=== PATIENT | female | born 1990 | race American Indian/Alaskan Native ===

== ENCOUNTER 2017-12-04 06:59 | Emergency (ER) | payer MEDICAID ==
[2017-12-04] MEDS ORDERED: TYLENOL ONE (07:18)
[2017-12-04] MEDS ORDERED: TYLENOL PO ONE (07:43)
--- NOTE | 2017-12-04 08:13 | Emergency Department Report ---
ED Abdominal Pain HPI - General Chief Complaint: Abdominal Pain Stated Complaint: 13 WEEKS , SEVERE PAIN Time Seen by Provider: 12/04/17 08:02 Source: patient, family Mode of arrival: Ambulatory Limitations: No Limitations - History of Present Illness Initial Comments: 27-year-old female presents with generalized lower abdominal cramping. Pain feels like contractions. She denies vaginal bleeding. She has clear vaginal discharge. Gradual onset of symptoms several hours prior to arrival. Last menstrual period 08/31/2017. Estimated due date given to her by clinic at [place] 05/01/2018. moderately severe pain. Gradual onset pain, does not change with movement or touch. No radiation. Pain is intermittent. According to dates she is currently 13 weeks and 4 days - Related Data Allergies Allergy/AdvReac Type Severity Reaction Status Date / Time No Known Allergies Allergy Verified 12/04/17 07:39 ED Review of Systems ROS: Stated complaint: 13 WEEKS , SEVERE PAIN Other details as noted in HPI ED Past Medical Hx - Past Medical History Previous Medical History?: No - Surgical History Past Surgical History?: No - Social History Smoking Status: Never Smoker Substance Use Type: None ED Physical Exam - General Limitations: No Limitations General appearance: alert, in no apparent distress - Head Head exam: Present: atraumatic, normocephalic - Eye Eye exam: Present: normal appearance - ENT ENT exam: Present: normal exam, normal orophraynx, mucous membranes dry, mucous membranes moist - Neck Neck exam: Present: normal inspection. Absent: meningismus - Respiratory Respiratory exam: Present: normal lung sounds bilaterally. Absent: respiratory distress, wheezes, rales, rhonchi - Cardiovascular Cardiovascular Exam: Present: regular rate, normal rhythm, normal heart sounds. Absent: systolic murmur, diastolic murmur, rubs, gallop - GI/Abdominal GI/Abdominal exam: Present: soft, normal bowel sounds. Absent: distended, tenderness, guarding, rebound (gravid abdomen) - Extremities Exam Extremities exam: Present: normal inspection - Back Exam Back exam: Present: normal inspection - Neurological Exam Neurological exam: Present: alert, oriented X3 - Psychiatric Psychiatric exam: Present: normal affect, normal mood - Skin Skin exam: Present: warm, dry, intact, normal color. Absent: rash ED Course Vital Signs 12/04/17 12/04/17 07:08 08:20 Temperature 98.5 F 98.0 F Pulse Rate 83 81 Respiratory 14 Rate Blood Pressure 138/59 Blood Pressure 126/69 [Left] O2 Sat by Pulse 99 99 Oximetry ED Medical Decision Making - Lab Data Result diagrams: 12/04/17 07:35 Laboratory Results - last 24 hr 12/04/17 12/04/17 12/04/17 07:13 07:35 07:35 WBC 6.5 RBC 4.04 Hgb 12.4 Hct 36.4 MCV 90 MCH 31 MCHC 34 RDW 13.4 Plt Count 199 HCG, Quant 18564 H Urine Color Yellow Urine Turbidity Clear Urine pH 6.0 Ur Specific [place] 1.019 Urine Protein <15 mg/dl Urine Glucose (UA) Neg Urine Ketones Neg Urine Blood Neg Urine Nitrite Neg Urine Bilirubin Neg Urine Urobilinogen < 2.0 Ur Leukocyte Esterase Tr Urine WBC (Auto) 2.0 Urine RBC (Auto) 3.0 U Epithel Cells (Auto) 16.0 H Blood Type 12/04/17 07:35 WBC RBC Hgb Hct MCV MCH MCHC RDW Plt Count HCG, Quant Urine Color Urine Turbidity Urine pH Ur Specific [place] Urine Protein Urine Glucose (UA) Urine Ketones Urine Blood Urine Nitrite Urine Bilirubin Urine Urobilinogen Ur Leukocyte Esterase Urine WBC (Auto) Urine RBC (Auto) U Epithel Cells (Auto) Blood Type O POSITIVE Vital Signs - 24 hr 12/04/17 12/04/17 07:08 08:20 Temperature 98.5 F 98.0 F Pulse Rate 83 81 Respiratory 14 Rate Blood Pressure 138/59 Blood Pressure 126/69 [Left] O2 Sat by Pulse 99 99 Oximetry - Medical Decision Making Ms. Desai presents with abdominal cramping. She felt much better after knowing that the baby appears well on ultrasound and has a good heartbeat. She was given reassurance. No indication of threatened , appendicitis or ectopic. Abdominal pain seems related to normal . Dc'd home Critical care attestation.: If time is entered above; I have spent that time in minutes in the direct care of this critically ill patient, excluding procedure time. ED Disposition Clinical Impression: , Abdominal pain affecting Disposition: DC-01 TO HOME OR SELFCARE Is pt being admited?: No Does the pt Need Aspirin: No Condition: Stable Instructions: Abdominal Pain in (ED) Referrals: PRIMARY CAREMD [Primary Care Provider] - 3-5 Days DESHAWN RAMIREZ MD [Staff Physician] - as needed Time of Disposition: 10:05
[2017-12-04 08:15] LABS: Hematocrit 36.4 % (30.3-42.9); Hemoglobin 12.4 gm/dl (10.1-14.3); Mean Corpuscular HGB Conc 34 % (30-34); Mean Corpuscular Hemoglobin 31 pg (28-32); Mean Corpuscular Volume 90 fl (79-97); Platelet Count 199 K/mm3 (140-440); Red Blood Count 4.04 M/mm3 (3.65-5.03); Red Cell Distribution Width 13.4 % (13.2-15.2)
[2017-12-04 08:24] VITALS: BP 126/69
[2017-12-04 08:28] LABS: Bilirubin,Urine NEG (Negative); Blood,Urine NEG (Negative); Color,Urine Yellow (Yellow); Protein,Urine <15 mg/dL mg/dL (Negative); Urobilinogen,Urine < 2.0 mg/dL (<2.0)
[2017-12-04] MEDS ORDERED: NORCO 5/325 PO ONE (08:30)
--- NOTE | 2017-12-04 09:37 | Ultrasound Report ---
OB ULTRASOUND History vaginal cramping during . Technique: Transabdominal ultrasound with Doppler interrogation. Gestation: Single Position: Transverse, head to maternal left Amniotic Fluid: Within normal limits Placenta: Posterior Placental Grade: 0 Heart Rate: 143 BPM Cervical length: 3.6 cm (Normal > 3 cm) x It is too early for a anatomical survey BPD: 2.5 cm = 14 w 2 d HC: 10.2 cm = 14 w 5 d AC: 7.8 cm = 14 w 2 d FL: 1.3 cm = 13 w 6 d HC/AC Ratio: 1.29 Cephalic Index: 73.2 LMP: 08/31/17 Clinical age = 13 w 4 d EDC: 06/07/18 US Gest. Age = 14 w 2 d EDC: 06/02/18 Comment: A 2.0 x 1.8 cm cyst is noted in the right ovary. No pelvic fluid collection. IMPRESSION: Viable, single intrauterine as described. Right ovarian cyst measuring 2.0 cm.
== END 2017-12-04 10:31 | disposition home or self-care (01) ==
LOC: ED 06:59
DX: O26.891 Other specified pregnancy related conditions, first trimester (principal); R10.9 Unspecified abdominal pain; Z3A.13 13 weeks gestation of pregnancy
CPT/HCPCS: 36415; 76805; 81001; 84702; 85027; 86900; 86901